=== PATIENT | female | born 1975 ===

== ENCOUNTER 2017-09-29 07:21 | Day surgery (SDC) | payer OTHER ==
[2017-09-29] MEDS ORDERED: Lidocaine 1% MPF (30 ml) Inj ONE (07:36)
[2017-09-29] MEDS ORDERED: Bupivacaine HCl 0.25% PF (10 ml) Inj ONE (07:38)
[2017-09-29] MEDS ORDERED: MethylPREDNISolone Depo 40 mg/ml Inj ONE (07:38)
[2017-09-29] MEDS ORDERED: Lidocaine Hydrochloride 5 ML INJ ONE (07:39)
[2017-09-29 08:05] VITALS: RESP 20; TEMP 97.5; O2SAT 100
[2017-09-29] MEDS ORDERED: Propofol 10 mg/ml Inj (20 ML) ONE (10:39)
[2017-09-29 11:34] VITALS: BP 110/70; PULSE 72
--- NOTE | 2017-09-29 12:51 | RAD ---
PROCEDURE: Intraoperative Fluoroscopy. HISTORY: CERVICAL FACET SPONDYLOSIS FINDINGS: Fluoroscopic assistance was provided. 18.6 seconds fluoroscopy time utilized during this procedure. Radiation dose = 0.37635 mGy-cm.
--- NOTE | 2017-09-30 08:36 | OP ---
PROCEDURE DATE: 09/29/17 PREOPERATIVE DIAGNOSIS: Cervical spondylosis without myelopathy, myalgias. POSTOPERATIVE DIAGNOSIS: Cervical spondylosis without myelopathy, myalgias. PROCEDURE: 1. Bilateral C3-C4, C4-C5, C5-C6 medial branch blocks. 2. Trigger point injections. X-RAY: 03004, fluoroscopy of the spine. ANESTHESIA: MAC/local. SURGEON: Gabrielle Aguilar MD COMPLICATIONS: None. BLOOD LOSS: 2 mL. INDICATION: On physical exam, this patient's pain was made worse by side bending toward the affected side or extending the spine (backward bending). The patient's neck will generally feel stiff in the morning, and prolonged inactivity such as sitting, standing, or driving the car causes the pain to refer to the shoulder region. This pain is intractable, axial in nature, and unresponsive to conservative management. The pain is adversely affecting quality of life and activities of daily living. TECHNIQUE: After comprehensive informed consent was obtained, the risks of the procedure explained and questions answered. The patient was placed prone on the operating table in a comfortable position. Confirmation of the procedure to be performed was obtained from the patient. The skin overlying the area to be injected was confirmed and cleaned in a strict sterile fashion using chlorhexidine. Sterile drape was placed around the area to be injected. The area to be injected was superficially anesthetized with 1 mL of 1% lidocaine using a 27-gauge, 1.25-inch needle at each level noted above. Under fluoroscopic guidance, a curved 25-gauge, 3.5-inch spinal needle was advanced until the tip of the needle was ventro-medial to position the tip adjacent to the articular pillar, in contact with bone midway between the zygapophyseal joints above and below. The patient experienced no paresthesia during needle placement. The bone was contacted, and the C-arm was rotated laterally to confirm proper needle placement. The patient experienced no paresthesias in the upper extremities during needle placement. After negative aspiration for blood, 0.5 mL of non-ionic contrast was injected to outline the medial branch nerve, then 1 mL of a mixture of 10 mL of 0.25% bupivicaine mixed with 40 mg of Depo-Medrol was slowly injected at each level. The needle was removed, and a Band-Aid was placed over the puncture site. The fluoroscopic image was stored for the medical record. Trigger Point Injections/Greater and Lesser Occipital Nerve Blocks: Tender to palpation on cervical areas and pain shooting up posterior head. Patient signed informed consent. Cervical area was prepped and draped in sterile fashion. A 25-gauge needle was used to inject trigger point areas in trapezius muscles, paracervical muscles, and rhomboids bilaterally. The greater and lesser occipital nerves were also injected bilaterally by inserting needle 1 cm lateral and inferior to the posterior occipital protuberance. Total volume used was 8 mL of 0.25% Marcaine mixed with 40 mg Kenalog. Intermittent aspiration was done throughout with no heme or CSF aspirated throughout. Patient tolerated procedure well. ASSESSMENT: Upon discharge, the patient noted more than 80% relief in the affected painful area. The patient was instructed to keep a pain diary to utilize over the next 4 hours while performing activities that are normally aggravating. This will provide a quantitative value of how much of the pain is related to osteoarthritis of the facets. The patient understands that this block is diagnostic and temporary. If there is significant pain relief during the next 4 hours, we will schedule for radiofrequency ablation of the offending pain fibers around the affected facet joints to help provide long-term relief. DISPOSITION: Patient was given instructions to follow up in two weeks and was discharged in stable condition. No events or complications. Gabrielle Aguilar MD
== END 2017-09-29 11:35 | disposition home or self-care (01) ==
LOC: C.SDS 07:21
PROVIDERS: ATTEND Anesthesiology Pain Medicine
DX: M47.812 Spondylosis without myelopathy or radiculopathy, cervical region (principal)
CPT/HCPCS: 62320; J1030; J2704; J7120